=== PATIENT | female | born 1955 | race Caucasian/White ===

== ENCOUNTER 2017-05-24 08:16 | Emergency (ER) | payer SELFPAY ==
[2017-05-24 08:26] VITALS: BP 136/76
--- NOTE | 2017-05-24 08:36 | ED ---
Upper Extremity Pain - HPI Summary HPI Summary: 61 year old female presents with complains of left shoulder pain secondary to lifting a patient. - History of Current Complaint Chief Complaint: UCUpperExtremity Stated Complaint: UPPER ARM INJURY Time Seen by Provider: 05/24/17 08:31 - Allergies/Home Medications Allergies/Adverse Reactions: Allergies Allergy/AdvReac Type Severity Reaction Status Date / Time Morphine Allergy Severe CHEST Verified 08/30/15 15:59 PAIN, "MAKES ME CRAZY" PMH/Surg Hx/FS Hx/Imm Hx - Surgical History Surgery Procedure, Year, and Place: VAGINAL HYSTERECTOMY (TOTAL), OVARIES BILATERAL REMOVAL Infectious Disease History: No Infectious Disease History: Denies: Hx Clostridium Difficile, Hx Hepatitis, Hx Human Immunodeficiency Virus (HIV), Hx of Known/Suspected MRSA, Hx Shingles, Hx Tuberculosis, Hx Known/ Suspected VRE, Hx Known/Suspected VRSA, History Other Infectious Disease, Traveled Outside the in Last 30 Days - Social History Alcohol Use: None Substance Use Type: Reports: None Smoking Status (MU): Former Smoker Review of Systems Positive: Myalgia, Other - left shoulder pain All Other Systems Reviewed And Are Negative: Yes Physical Exam Triage Information Reviewed: Yes Vital Signs On Initial Exam: Initial Vitals Temp Pulse Resp BP Pulse Ox 38.4 C 87 19 136/76 100 05/24/17 08:22 05/24/17 08:22 05/24/17 08:22 05/24/17 08:22 05/24/17 08:22 Musculoskeletal: Positive: Other - left shoulder pain Diagnostics - Vital Signs Vital Signs Temp Pulse Resp BP Pulse Ox 05/24/17 08:22 38.4 C 87 19 136/76 100 - Laboratory Lab Statement: Any lab studies that have been ordered have been reviewed, and results considered in the medical decision making process. Course/Dx - Diagnoses Provider Diagnoses: Shoulder pain, left Discharge - Discharge Plan Condition: Stable Disposition: HOME Prescriptions: Methocarbamol TAB* [Robaxin 500 MG TAB*] 500 mg PO TID PRN #30 tab PRN Reason: Spasms - Muscle Naproxen Sodium [Naproxen Sodium 500 MG TAB] 500 mg PO BID PC #30 tab Patient Education Materials: Shoulder Bursitis (ED), Shoulder Sprain (ED), Shoulder Pain (ED) Referrals: Shane Zuniga MD [Primary Care Provider] - If Needed
--- NOTE | 2017-05-24 09:11 | RAD ---
INDICATION: Left shoulder injury. TECHNIQUE: 4 views of the left shoulder were obtained. FINDINGS: The bones are in normal alignment. No fracture is seen. There is a small lucent lesion in the humeral head with sclerotic margin possibly representing a subchondral cyst. No arthritic change is seen. IMPRESSION: NO EVIDENCE OF FRACTURE.
== END 2017-05-24 09:52 | disposition home or self-care (01) ==
LOC: UCEAST 08:16
DX: M25.512 Pain in left shoulder (principal); Z88.5 Allergy status to narcotic agent; Z87.891 Personal history of nicotine dependence
CPT/HCPCS: 99212; G0463

== ENCOUNTER 2017-05-31 19:48 | Emergency (ER) | payer SELFPAY ==
[2017-05-31 20:31] VITALS: BP 135/72
--- NOTE | 2017-05-31 20:31 | UC ---
Shoulder Pain HPI - HPI Summary HPI Summary: 61 YEAR OLD FEMALE PRESENTS FOR RECHECK LEFT SHOULDER SECONDARY TO A WORKERS COMP INJURY. - History of Current Complaint Chief Complaint: UCUpperExtremity Stated Complaint: SHOULDER INJURY RECHECK Time Seen by Provider: 05/31/17 20:31 - Allergies/Home Medications Allergies/Adverse Reactions: Allergies Allergy/AdvReac Type Severity Reaction Status Date / Time Morphine Allergy Severe CHEST Verified 08/30/15 15:59 PAIN, "MAKES ME CRAZY" PMH/Surg Hx/FS Hx/Imm Hx Previously Healthy: Yes - Surgical History Surgical History: Yes Surgery Procedure, Year, and Place: VAGINAL HYSTERECTOMY (TOTAL), OVARIES BILATERAL REMOVAL - Social History Alcohol Use: None Substance Use Type: None Smoking Status (MU): Former Smoker Review of Systems Constitutional: Negative Skin: Negative Eyes: Negative ENT: Negative Respiratory: Negative Cardiovascular: Negative Gastrointestinal: Negative Genitourinary: Negative Motor: Negative Neurovascular: Negative Musculoskeletal: Other: - LEFT SHOULDER PAIN Neurological: Negative Psychological: Negative All Other Systems Reviewed And Are Negative: Yes Physical Exam Triage Information Reviewed: Yes Eye Exam: Normal ENT Exam: Normal Dental Exam: Normal Neck exam: Normal Neck: Positive: 1 Respiratory Exam: Normal Cardiovascular Exam: Normal Abdominal Exam: Normal Musculoskeletal: Positive: Other: - LEFT SHOULDER PAIN Neurological Exam: Normal Psychological Exam: Normal Skin Exam: Normal Shoulder Course/Dx - Differential Dx/Diagnosis Provider Diagnoses: LEFT SHOULDER SPRAIN Discharge - Discharge Plan Condition: Stable Disposition: HOME Patient Education Materials: Shoulder Sprain (ED) Forms: *Work Release Referrals: Shane Zuniga MD [Primary Care Provider] - 7 Days
== END 2017-05-31 20:51 | disposition home or self-care (01) ==
LOC: UCEAST 19:48
DX: S43.402A Unspecified sprain of left shoulder joint, initial encounter (principal); Z88.5 Allergy status to narcotic agent; Z87.891 Personal history of nicotine dependence; Y99.0 Civilian activity done for income or pay; X58.XXXA Exposure to other specified factors, initial encounter
CPT/HCPCS: 99211; G0463

== ENCOUNTER 2018-06-19 07:24 | Emergency (ER) | payer BC, OTHER ==
--- OUTSIDE RECORDS SUMMARY | 2018-06-19 07:30 | XMS REPORT ---
:1955 External Reference #:[id number] Author Organization [email or web address] Address [address] [facility] [place] [address] Phone [phone] Care Team Providers Name Role Phone Shane Zuniga MD Primary Care Physician Unavailable Payers Type Date Identification Numbers Payment Subscriber Provider Workers Compensation Effective: Policy Number: [id number] Bennie Alaniz 2017 Service Group Onset: 2017 Group Name: [address] PayID: [place] [address] Medigap Part B Policy Number: [id number] Of DANIEL Alaniz PayID: [id number] [address] [address] [place] [address] Commercial Expires: 2016 PayID: [id number] [employer] Employees [employer] Employee [address] [place] [address] Supplemental Policy Effective: Policy Number: Cont: [employer] Chandra 2016 [id number] Employees Employee PayID: [id number] [address] [place] [address] Problems Date Description Provider Status Onset: 08/25/2017 Localized, 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 Onset: 08/25/2017 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 Onset: 08/25/2017 Tenosynovitis of hand Shane Felix MD Active Family History Date Family Member(s) Problem(s) Comments General Hypertension Mother Heart Disease Mother Stroke Social History Type Date Description Comments Marital Status Single Lives With Alone Occupation Nurse ETOH Use Denies alcohol use Recreational Drug Use Denies Drug Use Smoking Patient is a former smoker Daily Caffeine Consumes on average 2 cups of regular coffee per day Exercise Type/Frequency Exercises sporadically Allergies, Adverse Reactions, Alerts Date Description Reaction Status Severity Comments 06/30/2017 Morphine active Medications Medication Date Status Form Strength Qnty SIG Indications Ordering Provider Naproxen 10/12/20 Active Tablets 500mg 60tabs 1 by Regulo Cervantes 17 mouth MD Ra twice a day w food-uses prn Naproxen Hx Tablets 500mg 1 tablet Unknown 00 - with food 08/18/20 by mouth 17 twice a day Methocarbamol Hx Tablets 500mg one by Unknown 00 - mouth 08/11/20 four 17 times a day Crestor Hx Tablets 10mg 1 by Unknown 00 - mouth 05/16/20 every day 18 Vital Signs Date Vital Result Comment 06/01/2018 Height 64 inches 5'4" Weight 180.00 lb Heart Rate 78 /min BP Systolic Sitting 128 mmHg BP Diastolic Sitting 80 mmHg Respiratory Rate 16 /min Pain Level 10 BMI (Body Mass Index) 30.9 kg/m2 12/16/2017 Height 64 inches 5'4" Heart Rate 89 /min BP Systolic 114 mmHg BP Diastolic 76 mmHg Respiratory Rate 16 /min Pain Level 3 O2 % BldC Oximetry 97 % 11/11/2017 Height 64 inches 5'4" Weight 180.00 lb Heart Rate 82 /min BP Systolic Sitting 122 mmHg BP Diastolic Sitting 68 mmHg Respiratory Rate 16 /min Pain Level 2 BMI (Body Mass Index) 30.9 kg/m2 09/22/2017 Height 64 inches 5'4" Weight 180.00 lb Heart Rate 96 /min BP Systolic Sitting 120 mmHg BP Diastolic Sitting 84 mmHg Respiratory Rate 12 /min Pain Level 3 BMI (Body Mass Index) 30.9 kg/m2 08/25/2017 Height 64 inches 5'4" Weight 180.00 lb Heart Rate 75 /min BP Systolic Sitting 122 mmHg BP Diastolic Sitting 74 mmHg Respiratory Rate 16 /min Pain Level 2 O2 % BldC Oximetry 97 % BMI (Body Mass Index) 30.9 kg/m2 08/11/2017 Height 64 inches 5'4" Weight 180.00 lb Heart Rate 76 /min BP Systolic Sitting 116 mmHg BP Diastolic Sitting 66 mmHg Respiratory Rate 16 /min Pain Level 3 BMI (Body Mass Index) 30.9 kg/m2 06/30/2017 Height 64 inches 5'4" Weight 180.00 lb patient states Heart Rate 74 /min BP Systolic Sitting 124 mmHg BP Diastolic Sitting 78 mmHg Respiratory Rate 16 /min Pain Level 2 BMI (Body Mass Index) 30.9 kg/m2 Results Description No Information Procedures Date CPT Code Description Status 08/25/2017 07407 Rad Exam; Hand Comp Completed 07/16/2017 59524 Holter Monitor Review (24 hr)dr review & interp only Completed 07/14/2017 40981 ECG Monitor/Recording W/Visual Superimposition Scanning Completed Encounters Type Date Location Provider CPT E/M Dx Office Visit 12/16/2017 [facility] [place] [address] M75.42 8:45a [employer] [place] Office Visit 11/11/2017 [facility] [place] [address] M75.42 9:00a [employer] [place] [id number] Office Visit 09/22/2017 9:15a [facility] [place] [address] M75.42 [employer] [place] Office Visit 08/25/2017 10:30a [facility] [place] [address] M18.0 [employer] [place] [id number] M25.541 M25.542 M65.841 M65.842 Office Visit 08/11/2017 9:15a [place] [address] S43.52xA Of [employer] [place] [id number] Office Visit 06/30/2017 1:30p [facility] [place] [address] S43.52xA Of [employer] [place] S43.52xA S46.102A S46.102A G54.0 G54.0 Office Visit 10/23/2016 8:00a [facility] [place] [address] Z11.1 Z02.1 Plan of Care 12/16/2017 - [facility], [id number] Impingement syndrome of left shoulderNew Therapy:Physical TherapyFollow up:Follow up: may 2018 when at [facility] (1 year)
[2018-06-19 07:38] VITALS: BP 169/80
--- NOTE | 2018-06-19 07:48 | UC ---
Complaint Female HPI - HPI Summary HPI Summary: This is Brittanie andrea, documenting for attending Odessa De La Torre MD. This patient is a 62 year old F presenting to [facility] with a chief complaint of intermittent dysuria for the past several weeks. Patient additionally reports recent sinus headache, sore throat, and cough. Reports back pain from her arthritis she thinks and intermittent low grade fever (99.5). Denies odorous urine and vaginal discharge. Pt states feels like urinates razor blades. Patient has last taken naproxen yesterday morning for pain. Pain is 10/ 10 in severity, upon triage. Denies history of abnormal pap-smear. SHx of hysterectomy. - History Of Current Complaint Chief Complaint: UCGU Stated Complaint: BURNING URINATION, AND SORE THROAT Hx Obtained From: Patient Onset/Duration: Lasting Weeks Timing: Intermittent Pain Intensity: 10 Pain Scale Used: 0-10 Numeric Character: Burning Aggravating Factor(s): Urination Associated Signs And Symptoms: Positive: Fever, Back Pain - Allergies/Home Medications Allergies/Adverse Reactions: Allergies Allergy/AdvReac Type Severity Reaction Status Date / Time morphine Allergy Unknown Verified 06/19/18 07:39 Reaction Details Home Medications: Home Medications Naproxen Sodium [Naproxen Sodium 500 MG TAB] 500 mg PO BID PC PRN 06/19/18 [ History Confirmed 06/19/18] PMH/Surg Hx/FS Hx/Imm Hx Previously Healthy: Yes - Surgical History Surgical History: Yes Surgery Procedure, Year, and Place: VAGINAL HYSTERECTOMY (TOTAL), OVARIES BILATERAL REMOVAL - Family History Known Family History: Positive: Hypertension - Social History Occupation: Employed Full-time - Nurse at [employer] Alcohol Use: Rare Substance Use Type: None Smoking Status (MU): Former Smoker Review of Systems Constitutional: Fever - 99.5 ENT: Sore Throat, Sinus Pain/Tenderness Respiratory: Cough Genitourinary: Dysuria Musculoskeletal: Myalgia Neurological: Headache All Other Systems Reviewed And Are Negative: Yes Physical Exam - Summary Physical Exam Summary: Vital Signs Reviewed: Yes A+Ox3, no distress Eyes: Conjunctiva Clear, JENNIFER. EOM intact and full ENT: Hearing grossly normal TM x 2 clear, turbinates inflammed and boggy, +PND , mmoist, uvula midline, no exudate, no erythema Neck: Positive: Supple Respiratory: Positive: No respiratory distress, No accessory muscle use + CTA throughout no w/r Cardiovascular: RRR nl s1, s2 no m/r CBT <2 sec abd soft + BS nd no guarding, no distension, mild suprapubic tenderness no CVA Musculoskeletal Exam: JOHNSTON x 4 without difficulty Strength Intact, ROM Intact Neurological: Positive: Alert, + sensation throughout Psychological: Positive: Normal Response To Family Skin: Positive: no rash, no ecchymosis Triage Information Reviewed: Yes Vital Signs: Initial Vital Signs Temp 97.6 F 06/19/18 07:34 Pulse 79 06/19/18 07:34 Resp 16 06/19/18 07:34 BP 169/80 06/19/18 07:34 Pulse Ox 98 06/19/18 07:34 Complaint Female Dx - Course Course Of Treatment: Blood pressure noted and patient informed to follow up with PCP. Patient with ongoing intermittent dysuria for the last 4-6 weeks. Patient has been self treating with cranberry juice and water. Patient states her symptoms had improved until yesterday when they got so severe. Patient was stable vital signs. Patient without CVA tenderness. Patient with mild suprapubic discomfort. Patient's urine consistent with UTI. We'll start the patient on Augmentin twice a day for 10 days. Patient states she also feels she has of sinus infections of this antibiotic will cover both. Patient also given a prescription for Pyridium. Caution patient on excess use of naproxen. Patient declined work note. Patient will culture will give a follow-up call as needed. I acknowledge that the documentation on this chart was provided by a scribe on the date of service noted above and that the documentation in the chart accurately reflects work and decisions made by me alone. - Differential Dx/Diagnosis Provider Diagnoses: dysuria. sinus congestion Discharge - Sign-Out/Discharge Documenting (check all that apply): Patient Departure - Discharge Plan Condition: Stable Disposition: HOME Prescriptions: Amoxicillin/Clavulanate TAB* [Augmentin TAB 875*] 875 mg PO BID #20 tab Phenazopyridine TAB* [Pyridium 100 mg TAB*] 100 mg PO TID PRN #9 tab PRN Reason: burning with urination Patient Education Materials: Urinary Tract Infection in Women (ED) Referrals: Shane Zuniga MD [Primary Care Provider] - Additional Instructions: - stay well hydrated - drink plenty of non-alcoholic, non caffinated beverages - your urine will be further tested - if you require any changes to your treatment, we will contact you - this usually take 2 days - Contact your primary doctor to arrange a follow-up appointment next week. Contact your doctor or return with questions or concerns - Take your antibiotics exactly as prescribed until gone - Take pyridium as prescribed for discomfort. This will make your urine blaze orange - this is normal - Okay to take Naproxyn and/or Tylenol for pain. Take with food - Call your doctor or return with questions or concerns - Billing Disposition and Condition Condition: STABLE Disposition: Home
== END 2018-06-19 08:04 | disposition home or self-care (01) ==
LOC: UCEAST 07:24
DX: R30.0 Dysuria (principal); R09.81 Nasal congestion; Z88.5 Allergy status to narcotic agent; Z87.891 Personal history of nicotine dependence
CPT/HCPCS: 81003; 87077; 87086; 87186; 99212; G0463

== ENCOUNTER 2019-06-05 07:29 | Emergency (ER) | payer BC ==
[2019-06-05 07:46] VITALS: BP 138/82
--- NOTE | 2019-06-05 08:07 | UC ---
Complaint Female HPI - HPI Summary HPI Summary: 63 year old female presents with complaint of right sided abdominal pain with associated right flank pain over the past 3 days, thinks she may have a urinary tract infection. Notes urinary frequency without dysuria nor urgency. Notes some nausea, no vomiting, diarrhea, melena nor hematochezia. - History Of Current Complaint Chief Complaint: UCGU Stated Complaint: URINARY COMPLAINT Time Seen by Provider: 06/05/19 07:55 Hx Obtained From: Patient Onset/Duration: Gradual Onset Timing: Constant Pain Intensity: 10 Radiates to: right flank Character: Sharp Aggravating Factor(s): Nothing Alleviating Factor(s): Nothing Associated Signs And Symptoms: Positive: Back Pain - right flank, Nausea. Negative: Fever, Vaginal Discharge, Vomiting(# Of Episodes =) - Allergies/Home Medications Allergies/Adverse Reactions: Allergies Allergy/AdvReac Type Severity Reaction Status Date / Time morphine Allergy Unknown Verified 06/05/19 07:46 Reaction Details PMH/Surg Hx/FS Hx/Imm Hx Previously Healthy: Yes GI/ History: Gastroesophageal Reflux - Surgical History Surgical History: Yes Surgery Procedure, Year, and Place: VAGINAL HYSTERECTOMY (TOTAL), OVARIES BILATERAL REMOVAL , breast bx 05/2019 - Family History Known Family History: Positive: Hypertension - Social History Alcohol Use: None Substance Use Type: None Smoking Status (MU): Former Smoker Review of Systems All Other Systems Reviewed And Are Negative: Yes Constitutional: Negative: Fever, Chills, Fatigue Skin: Negative: Rash Eyes: Positive: Negative ENT: Negative: Sore Throat, Ear Ache Respiratory: Negative: Shortness Of Breath, Cough Cardiovascular: Negative: Palpitations, Chest Pain Gastrointestinal: Positive: Abdominal Pain, Nausea. Negative: Vomiting, Diarrhea Genitourinary: Positive: Frequency. Negative: Dysuria, Urgency, Vaginal/Penile Discharge Motor: Negative: Weakness Neurovascular: Positive: Negative Musculoskeletal: Positive: Negative Neurological: Positive: Negative Psychological: Positive: Negative Is Patient Immunocompromised?: No Physical Exam Triage Information Reviewed: Yes Appearance: Well-Appearing, Well-Nourished, Pain Distress - mild Vital Signs: Initial Vital Signs Temp 97.9 F 06/05/19 07:40 Pulse 87 06/05/19 07:40 Resp 16 06/05/19 07:40 BP 138/82 06/05/19 07:40 Pulse Ox 97 06/05/19 07:40 Vital Signs Reviewed: Yes Eyes: Positive: Conjunctiva Clear ENT: Positive: Normal ENT inspection Neck: Positive: Supple, Nontender, No Lymphadenopathy Respiratory: Positive: Lungs clear. Negative: Crackles, Rhonchi, Wheezing Cardiovascular: Positive: RRR, No Murmur Abdomen Description: Positive: Soft, CVA Tenderness (R), Other: - tenderness right upper quadrant to deep palpation.. Negative: Bruit, Distended, Guarding, Hepatomegaly, McBurney's Point Tenderness, Splenomegaly Bowel Sounds: Positive: Present Musculoskeletal: Positive: ROM Intact Neurological: Positive: Alert Skin: Negative: Rashes Diagnostics - Radiology No standard instances Radiology Interpretation Completed By: Radiologist Summary of Radiographic Findings: IMPRESSION: 1. NO CLEAR ETIOLOGY FOR ABDOMINAL PAIN. 2. THE PERCEIVED SMOOTH COLONIC WALL THICKENING ALONG THE HEPATIC FLEXURE AND TRANSVERSE. COLON IS LIKELY RELATED TO ITS COLLAPSED STATE. THERE IS NO PERICOLONIC STRANDING OR. PNEUMATOSIS. IF THE PATIENT'S PAIN PERSISTS, THIS COULD BE FURTHER EVALUATED BY. COLONOSCOPY. 3. SIGMOIDAL DIVERTICULA WITH NO SIGNIFICANT SIGNS OF INFLAMMATION. 4. HEPATIC STEATOSIS WITH NO FOCAL LIVER LESION ON THIS NONCONTRAST STUDY. Complaint Female Dx - Differential Dx/Diagnosis Provider Diagnosis: Right-sided abdominal pain of unknown etiology Discharge - Sign-Out/Discharge Documenting (check all that apply): Patient Departure All imaging exams completed and their final reports reviewed: Yes - Discharge Plan Condition: Stable Disposition: HOME Patient Education Materials: Abdominal Pain (ED) Referrals: Shane Zuniga MD [Primary Care Provider] - Additional Instructions: No acute abnormalities were identified on your CT scan of your abdomen and pelvis. Follow-up with your primary care physician to discuss referral for a colonoscopy. If symptoms worsen, recommend follow with with your physician or urgent care. - Billing Disposition and Condition Condition: STABLE Disposition: Home
== END 2019-06-05 09:47 | disposition home or self-care (01) ==
LOC: UCCORT 07:29
DX: R10.9 Unspecified abdominal pain (principal); Z87.891 Personal history of nicotine dependence; Z88.5 Allergy status to narcotic agent
CPT/HCPCS: 74176; 81003; 99211; G0463